=== PATIENT | female | born 1970 | race Caucasian/White ===

== ENCOUNTER 2017-07-07 22:26 | Emergency (ER) | payer MEDICAID ==
[2017-07-07 22:32] VITALS: RESP 16
[2017-07-07] MEDS ORDERED: ONDANSETRON 4 MG/2 ML VIAL IVP ONE (22:33)
[2017-07-07] MEDS ORDERED: NS 1,000 ML IV ONE (22:33)
--- NOTE | 2017-07-07 22:33 | EDPHY ---
H & P Stated Complaint: intermittant epigastric pain since Tuesday Time Seen by Provider: 07/07/17 22:30 HPI/ROS: HPI CHIEF COMPLAINT: Burning pain from the throat down to the epigastric region HISTORY OF PRESENT ILLNESS: Patient very pleasant 46-year-old female, she presents emergency room with burning discomfort from her throat down to in her epigastric region. Patient states that on Tuesday she 1st noticed this burning discomfort in her throat region all the way down to her epigastric region. It comes and goes. She again had on Tuesday. Additionally patient states that she did well most the week however returned approximately 3 hr ago prior to coming to the emergency room. She states she was cooking when it happened. Describes pain from her throat down into her epigastric region. Denies any vomiting. Denies lower abdominal pain. Denies pleuritic pain. Patient's predominant Ghanaian-speaking only her at bedside speaks Iraqi and Ghanaian and trans lytes. Past Medical History: Denies significant medical history Past Surgical History: Denies significant surgical history Social History: Denies drugs alcohol tobacco. Family History: Noncontributory ROS REVIEW OF SYSTEMS: A comprehensive 10 point review of systems is otherwise negative aside from elements mentioned in the history of present illness. Exam Constitutional appears well nontoxic no acute distress, triage nursing summary reviewed, vital signs reviewed, awake/alert. Eyes normal conjunctivae and sclera, EOMI, PERRLA. HENT normal inspection, atraumatic, moist mucus membranes, no epistaxis, neck supple/ no meningismus, no raccoon eyes. Respiratory clear to auscultation bilaterally, normal breath sounds, no respiratory distress, no wheezing. Cardiovascular rate normal, regular rhythm, no murmur, no edema, distal pulses normal. Gastrointestinal soft, non-tender, no rebound, no guarding, normal bowel sounds, no distension, no pulsatile mass. Genitourinary no CVA tenderness. Musculoskeletal no midline vertebral tenderness, full range of motion, no calf swelling, no tenderness of extremities, no meningismus, good pulses, neurovascularly intact. Skin pink, warm, & dry, no rash, skin atraumatic. Neurologic awake, alert and oriented x 3, AAOx3, moves all 4 extremities equally, motor intact, sensory intact, CN II-XII intact, normal cerebellar, normal vision, normal speech. Psychiatric normal mood/affect. Heme/Lymph/Immune no lymphadenopathy. Differential Diagnosis: Includes but is not limited to in a particular order esophagitis, gastritis, esophageal spasm, Boerhaave syndrome, pneumothorax, pneumonia, acute coronary syndrome, atypical chest pain, PE Medical Decision Making: Plan for this patient IV establishment with GI cocktail, check basic blood work, full monitoring specialist obtain EKG, chest x-ray, electrolytes, and re-evaluate. Re-evaluation: EKG interpretation by me on record in [facility] system. Impression time of EKG 2236 this is sinus rhythm rate of [address] elevation no ST depression, Q- waves noted V1 V2. ED x-ray chest: Shows a large amount of food contents in the stomach. Otherwise atraumatic and normal chest x-ray. 2324: Patient re-evaluated this time resting comfortably. She feels much better after GI cocktail. She no longer has this burning pain from her throat to her epigastric region. Her blood work is reassuring with a normal lipase, normal troponin, normal D- dimer. Chest x-ray has been reviewed. EKG does not show anything acute. Patient is feeling much better her clinical history review of systems and exam is consistent with reflux. I will prescribe her Zantac, Carafate, additionally recommend she stays away from eating or drinking spicy fatty greasy foods. Return precautions discussed patient understands return emergency room develops worsening pain fever vomiting bloody stool. Source: Patient - Personal History LMP (Females 10-55): Over 28 Days Ago Current Tetanus/Diphtheria Vaccine: Yes Current Tetanus Diphtheria and Acellular Pertussis (TDAP): Yes - Medical/Surgical History Hx Asthma: No Hx Chronic Respiratory Disease: No Hx Diabetes: No Hx Cardiac Disease: No Hx Renal Disease: No Hx Cirrhosis: No Hx Alcoholism: No Hx HIV/AIDS: No Hx Splenectomy or Spleen Trauma: No Other PMH: denies - Social History Smoking Status: Never smoked Constitutional: Initial Vital Signs Temperature (C) 37.0 C 07/07/17 22:28 Heart Rate 83 07/07/17 22:28 Respiratory Rate 16 07/07/17 22:28 Blood Pressure 111/86 H 07/07/17 22:28 O2 Sat (%) 99 07/07/17 22:28 O2 Delivery Mode Room Air Allergies/Adverse Reactions: No Known Allergies Allergy (Verified 07/07/17 22:32) Home Medications: Medication Instructions Recorded Ranitidine HCl [Zantac] 150 mg PO DAILY #30 tablet 07/07/17 Sucralfate [Carafate 1 GM (*)] 1 gm PO ACHS #14 tab 07/07/17 Medical Decision Making - Diagnostics Imaging Results: Imaging Impressions Chest X-Ray 07/07/17 22:42 Impression: 1. The stomach is distended with food. Is there a gastric outlet obstruction or gastroparesis? 2. Normal chest. - Data Points Laboratory Results: Laboratory Results 07/07/17 22:40 07/07/17 22:40 07/08/17 07/07/17 07/07/17 00:21 22:40 22:40 WBC RBC Hgb Hct MCV MCH MCHC RDW Plt Count MPV Neut % (Auto) Lymph % (Auto) Hans[place] % (Auto) Eos % (Auto) Baso % (Auto) Nucleat RBC Rel Count Absolute Neuts (auto) Absolute Lymphs (auto) Absolute Monos (auto) Absolute Eos (auto) Absolute Basos (auto) Absolute Nucleated RBC Immature Gran % Immature Gran # D-Dimer < 0.27 ug/mLFEU ug/mLFEU (0.00-0.50) Sodium Potassium Chloride Carbon Dioxide Anion Gap BUN Creatinine Estimated GFR Glucose Calcium Total Bilirubin Conjugated Bilirubin Unconjugated Bilirubin AST ALT Alkaline Phosphatase Troponin I < 0.012 ng/mL ng/mL (0.000-0.034) Total Protein Albumin Lipase Beta HCG, Qual NEGATIVE 07/07/17 07/07/17 22:40 22:40 WBC 6.18 10^3/uL 10^3/uL (3.80-9.50) RBC 4.39 10^6/uL 10^6/uL (4.18-5.33) Hgb 12.9 g/dL g/dL (12.6-16.3) Hct 38.6 % % (38.0-47.0) MCV 87.9 fL fL (81.5-99.8) MCH 29.4 pg pg (27.9-34.1) MCHC 33.4 g/dL g/dL (32.4-36.7) RDW 14.0 % % (11.5-15.2) Plt Count 249 10^3/uL 10^3/uL (150-400) MPV 11.2 fL fL (8.7-11.7) Neut % (Auto) 51.3 % % (39.3-74.2) Lymph % (Auto) 36.9 % % (15.0-45.0) Hans[place] % (Auto) 10.0 % % (4.5-13.0) Eos % (Auto) 1.0 % % (0.6-7.6) Baso % (Auto) 0.6 % % (0.3-1.7) Nucleat RBC Rel Count 0.0 % % (0.0-0.2) Absolute Neuts (auto) 3.17 10^3/uL 10^3/uL (1.70-6.50) Absolute Lymphs (auto) 2.28 10^3/uL 10^3/uL (1.00-3.00) Absolute Monos (auto) 0.62 10^3/uL 10^3/uL (0.30-0.80) Absolute Eos (auto) 0.06 10^3/uL 10^3/uL (0.03-0.40) Absolute Basos (auto) 0.04 10^3/uL 10^3/uL (0.02-0.10) Absolute Nucleated RBC 0.00 10^3/uL 10^3/uL (0-0.01) Immature Gran % 0.2 % % (0.0-1.1) Immature Gran # 0.01 10^3/uL 10^3/uL (0.00-0.10) D-Dimer Sodium 141 mEq/L mEq/L (135-145) Potassium 3.7 mEq/L mEq/L (3.5-5.2) Chloride 105 mEq/L mEq/L (97-110) Carbon Dioxide 27 mEq/l mEq/l (22-31) Anion Gap 9 mEq/L mEq/L (8-16) BUN 13 mg/dL mg/dL (7-23) Creatinine 0.5 mg/dL L mg/dL (0.6-1.0) Estimated GFR > 60 Glucose 76 mg/dL mg/dL (70-100) Calcium 9.3 mg/dL mg/dL (8.5-10.4) Total Bilirubin 0.4 mg/dL mg/dL (0.1-1.4) Conjugated Bilirubin 0.2 mg/dL mg/dL (0.0-0.5) Unconjugated Bilirubin 0.2 mg/dL mg/dL (0.0-1.1) AST 26 IU/L IU/L (14-46) ALT 34 IU/L IU/L (9-52) Alkaline Phosphatase 57 IU/L IU/L (38-126) Troponin I < 0.012 ng/mL ng/mL (0.000-0.034) Total Protein 7.6 g/dL g/dL (6.3-8.2) Albumin 4.4 g/dL g/dL (3.5-5.0) Lipase 237 IU/L IU/L (23-300) Beta HCG, Qual Medications Given: Discontinued Medications Al Hydroxide/Mg Hydroxide (Maalox Susp) 30 ml PO ONCE ONE Stop: 07/07/17 22:43 Last Admin: 07/07/17 22:55 Dose: 30 ml Hyoscyamine Sulfate (Levsin, Hyomax-Sl) 0.25 mg PO ONCE ONE Stop: 07/07/17 22:43 Last Admin: 07/07/17 22:55 Dose: 0.25 mg Sodium Chloride (Ns) 1,000 mls @ 0 mls/hr IV EDNOW ONE; Wide Open PRN Reason: Protocol Stop: 07/07/17 22:34 Last Admin: 07/07/17 22:55 Dose: 1,000 mls Lidocaine (Lidocaine 2% Viscous) 15 ml PO ONCE ONE Stop: 07/07/17 22:43 Last Admin: 07/07/17 22:55 Dose: 15 ml Ondansetron HCl (Zofran) 4 mg IVP EDNOW ONE Stop: 07/07/17 22:34 Last Admin: 07/07/17 22:55 Dose: 4 mg Departure - Departure Disposition: Home, Routine, Self-Care Clinical Impression: Gastritis Qualifiers: Gastritis type: alcoholic Chronicity: acute Gastritis bleeding: without bleeding Qualified Code(s): K29.20 - Alcoholic gastritis without bleeding Condition: Good Instructions: Gastritis (ED), Gastroesophageal Reflux Disease (ED) Additional Instructions: 1. Do not eat spicy fatty greasy foods. 2. Antacid as prescribed. Referrals: NONE *PRIMARY CARE P,. [Primary Care Provider] - As per Instructions Prescriptions: Ranitidine HCl [Zantac] 150 mg PO DAILY #30 tablet Sucralfate [Carafate 1 GM (*)] 1 gm PO ACHS #14 tab Print Language: Ghanaian
--- NOTE | 2017-07-07 22:40 | CPEKG ---
Heart Rate: 74 RR Interval: 811 P-R Interval: 160 QRSD Interval: 80 QT Interval: 392 QTC Interval: 435 P [place]: 63 QRS [place]: 70 T Wave [place]: 46 EKG Severity - ABNORMAL ECG - EKG Impression: SINUS RHYTHM EKG Impression: PROBABLE ANTEROSEPTAL INFARCT, AGE INDETERM Electronically Signed By: Emiliano Isabel 08-Jul-2017 07:04:38
[2017-07-07] MEDS ORDERED: MAG HYDROX/AL HYDROX/SIMETH 30 ML UDCUP PO ONE (22:42)
[2017-07-07] MEDS ORDERED: LIDOCAINE 2% VISCOUS 15 ML UDCUP PO ONE (22:42)
[2017-07-07] MEDS ORDERED: HYOSCYAMINE SULFATE 0.125 MG TAB PO ONE (22:42)
[2017-07-07 22:50] LABS: PLATELET COUNT 249 10^3/uL (150-400)
[2017-07-08 01:05] VITALS: BP 108/63; PULSE 85; TEMP 98.2; O2SAT 99
== END 2017-07-08 01:05 | disposition home or self-care (01) ==
DX: K29.20 Alcoholic gastritis without bleeding (principal); E86.9 Volume depletion, unspecified
CPT/HCPCS: 96374; J2405

== ENCOUNTER 2018-01-09 22:27 | Emergency (ER) | payer MEDICAID, OTHER ==
[2018-01-09 22:32] VITALS: BP 114/75
--- NOTE | 2018-01-09 23:02 | EDPHY ---
H & P Smoking Status: Never smoked Time Seen by Provider: 01/09/18 22:58 HPI/ROS: CHIEF COMPLAINT: Concern for UTI HISTORY OF PRESENT ILLNESS: 47-year-old female here chief complaint of pain with urination and frequent urination starting this morning. She states this feels similar to prior urinary tract infections. She has not had had recent UTI in the last 6 months. She denies any back or flank pain as no history of kidney stones. She denies fever and chills. REVIEW OF SYSTEMS: Constitutional: No fever, no chills. Eyes: No discharge. ENT: No sore throat. Cardiovascular: No chest pain, no palpitations. Respiratory: No cough, no shortness of breath. Gastrointestinal: No abdominal pain, no vomiting. Genitourinary: No hematuria. Musculoskeletal: No back pain. Skin: No rashes. Neurological: No headache. (Galen Bhatia) Physical Exam: General Appearance: Alert and no distress. Eyes: Pupils equal and round no injection. Respiratory: Chest is nontender, lungs are clear to auscultation. Cardiac: regular rate and rhythm. Gastrointestinal: Abdomen is soft and nontender, no masses, bowel sounds normal. Musculoskeletal: Neck is supple and nontender. Extremities have full range of motion and are nontender. Skin: No rashes or lesions. (Galen Bhatia) Constitutional: Initial Vital Signs Temperature (C) 37.0 C 01/09/18 22:31 Heart Rate 80 01/09/18 22:31 Respiratory Rate 18 01/09/18 22:31 Blood Pressure 114/75 01/09/18 22:31 O2 Sat (%) 97 01/09/18 22:31 O2 Delivery Mode Room Air Allergies/Adverse Reactions: No Known Allergies Allergy (Verified 01/09/18 22:32) Home Medications: Medication Instructions Recorded Nitrofurantoin Macrobid [Macrobid] 100 mg PO BID #14 cap 01/09/18 Medical Decision Making Differential Diagnosis: Urethritis, pyelonephritis, vaginitis, UTI (Galen Bhatia) PHYSICIAN DOCUMENTATION: The patient was evaluated and managed by the Physician Balance Wheel Hand Filer. My co- signature indicates that I have reviewed this chart and I agree with the findings and plan of care as documented. I am the secondary supervising physician. (Marilyn Morgan) - Data Points Laboratory Results: 01/09/18 22:40 Urine Color PALE YELLOW Urine Appearance HAZY Urine pH 6.0 (5.0-7.5) Ur Specific [place] 1.005 (1.002-1.030) Urine Protein NEGATIVE (NEGATIVE) Urine Ketones NEGATIVE (NEGATIVE) Urine Blood 3+ H (NEGATIVE) Urine Nitrate NEGATIVE (NEGATIVE) Urine Bilirubin NEGATIVE (NEGATIVE) Urine Urobilinogen NEGATIVE EU EU (0.2-1.0) Ur Leukocyte Esterase 3+ H (NEGATIVE) Urine RBC 5-10 /hpf H /hpf (0-3) Urine WBC 50-182 /hpf H /hpf (0-3) Ur Epithelial Cells TRACE /lpf /lpf (NONE-1+) Urine Bacteria 1+ /hpf H /hpf (NONE SEEN) Urine Mucus TRACE /lpf /lpf (NONE-1+) Urine Glucose NEGATIVE (NEGATIVE) Medications Given: Discontinued Medications Nitrofurantoin (Macrobid 100mg Prepack#2) 1 btl TAKEHOME EDNOW ONE PRN Reason: Protocol Stop: 01/09/18 23:02 Last Admin: 01/09/18 23:21 Dose: 1 btl Nitrofurantoin Macrocrystals (Macrobid) 100 mg PO EDNOW ONE PRN Reason: Protocol Stop: 01/09/18 23:02 Last Admin: 01/09/18 23:20 Dose: 100 mg Departure - Departure Disposition: Home, Routine, Self-Care Clinical Impression: UTI (urinary tract infection) Condition: Good Instructions: Dysuria (ED) Referrals: NONE *PRIMARY CARE P,. [Primary Care Provider] - As per Instructions [facility],. [Clinic] - As per Instructions Prescriptions: Nitrofurantoin Macrobid [Macrobid] 100 mg PO BID #14 cap
[2018-01-09] MEDS: NITROFURANTOIN MACROBID 100 MG CAP PO ONE (23:20)
[2018-01-09] MEDS: NITROFURANTOIN 100MG PREPACK#2 BTL TAKEHOME ONE (23:21)
== END 2018-01-09 23:28 | disposition home or self-care (01) ==
DX: N39.0 Urinary tract infection, site not specified (principal)